=== PATIENT | female | born 1965 | race Caucasian/White ===

== ENCOUNTER 2020-06-11 09:14 | Emergency (ER) | payer BC ==
[~2020-06-11] VITALS: Ht 160 cm; Wt 77.1 kg
[2020-06-11] MEDS ORDERED: LEVOTHYROXINE125 MCG ORAL (09:36)
[2020-06-11 09:45] VITALS: BP 137/84
--- NOTE | 2020-06-11 10:55 | Diagnostic Imaging Report ---
Indications: And injury, pain Technique: Spiral acquisitions obtained through the brain. Angled axial and coronal 5 x 5 mm slices were reconstructed. Total dose length product 1045 mGycm. CTDI vol(s) 53 mGy. Dose reduction achieved using automated exposure control Comparison: None. Findings: No acute intracranial hemorrhage or edema. No mass effect or midline shift. Normal zee-white differentiation. Mastoids are clear. Visualized orbits and sinuses are unremarkable. The calvarium is intact. Impression: Negative The CT scanner at [facility] is accredited by the [employer] and the scans are performed using protocols designed to limit radiation exposure to as low as reasonably achievable to attain images of sufficient resolution adequate for diagnostic evaluation.
[2020-06-11] MEDS ORDERED: TYLENOL EXTRA500 MG ORAL (11:13)
[2020-06-11 11:27] VITALS: BP 137/84
--- NOTE | 2020-06-17 06:42 | Emergency Room Report ---
History of Present Illness General Chief Complaint: Headache Source: Patient Present Illness HPI 54-year-old female presents the ED after head injury. States she fell backwards in her chair and hit the back of her head about 4 days ago. Denies LOC but states she is been having nausea and dizziness since. Pain is dull, 7 out of 10, nonradiating. Denies any other injuries. No other aggravating relieving factors. Denies any other associated symptoms Allergies: Coded Allergies: No Known Allergies (Unverified , 06/11/20) COVID-19 Screening Contact w/high risk pt: No Experienced COVID-19 symptoms?: Yes COVID-19 Testing performed V[employer]: Yes - one month ago COVID-19 Screening: Negative COVID-19 COVID-19 Testing Source: RN SANE Patient History Past Medical History: none Past Surgical History: none Pertinent Family History: none Social History: Denies: smoking, alcohol use, drug use Now: No Immunizations: UTD Reviewed Nursing Documentation: PMH: Agreed; PSxH: Agreed Nursing Documentation-PMH Past Medical History: No History, Except For Review of Systems All Other Systems: negative except mentioned in HPI Physical Exam Sp02 EP Interpretation: reviewed, normal General Appearance: no apparent distress, alert, GCS 15, non-toxic Head: normocephalic, atraumatic Eyes: bilateral eye normal inspection, bilateral eye PERRL ENT: hearing grossly normal, normal pharynx, no angioedema, normal voice Neck: full range of motion, supple/symm/no masses Respiratory: chest non-tender, lungs clear, normal breath sounds, speaking full sentences Cardiovascular #1: regular rate, rhythm, no edema Cardiovascular #2: 2+ carotid (R), 2+ carotid (L), 2+ radial (R), 2+ radial (L), 2+ dorsalis pedis (R), 2+ dorsalis pedis (L) Gastrointestinal: normal bowel sounds, non tender, soft, non-distended, no guarding, no rebound Rectal: deferred Genitourinary: normal inspection, no CVA tenderness Musculoskeletal: back normal, normal range of motion, gait/station normal, non- tender Neurologic: alert, motor strength/tone normal, oriented x3, sensory intact, responsive, speech normal Psychiatric: judgement/insight normal, memory normal, mood/affect normal, no suicidal/homicidal ideation Reflexes: 3+ bicep (R), 3+ bicep (L), 3+ tricep (R), 3+ tricep (L), 3+ knee (R), 3+ knee (L) Lymphatic: no adenopathy Medical Decision Making Diagnostic Impression: Primary Impression: Head injury Qualified Codes: S09.90XA - Unspecified injury of head, initial encounter ER Course Hospital Course 54-year-old F presents ED complaining of headache with dizziness and nausea after falling backwards and hitting head. Differential diagnoses include: skull fx, intracranial injury, concussion Clinical course Patient placed on stretcher. After initial history and physical I ordered CT head CT head shows no acute process. I discussed findings with patient. Reassurance given. No focal deficits. Safe for discharge with close outpatient follow-up. States she has a PMD Diagnosis - head injury Stable and discharged to home with Rx tylenol. Followup with PMD. Return to ED if symptoms recur or worsen CT/MRI/US Diagnostic Results CT/MRI/US Diagnostic Results : Imaging Test Ordered: CT Head Impression Procedure: CT Head no Contrast Indications: And injury, pain Technique: Spiral acquisitions obtained through the brain. Angled axial and coronal 5 x 5 mm slices were reconstructed. Total dose length product 1045 mGycm. CTDI vol(s) 53 mGy. Dose reduction achieved using automated exposure control Comparison: None. Findings: No acute intracranial hemorrhage or edema. No mass effect or midline shift. Normal zee-white differentiation. Mastoids are clear. Visualized orbits and sinuses are unremarkable. The calvarium is intact. Impression: Negative Status: improved Disposition: HOME, SELF-CARE Condition: Stable Scripts Acetaminophen* (TYLENOL EXTRA STRENGTH*) 500 Mg Tablet 500 MG ORAL Q8H PRN for Prn Headache/Temp > 101, #30 TAB 0 Refills Prov: Bebo Morales MD 06/11/20 Departure Forms: Return to Work Return to Work Date: Jun 14, 2020 Work Restrictions: None Patient Instructions: Head Injury, Adult Bebo Morales MD Jun 17, 2020 06:42
== END 2020-06-11 11:29 | disposition home or self-care (01) ==
LOC: EEVIPCON 09:47 → EMR 09:47
DX: S09.90XA Unspecified injury of head, initial encounter (principal); W07.XXXA Fall from chair, initial encounter; Y92.9 Unspecified place or not applicable; R42 Dizziness and giddiness; R11.0 Nausea
CPT/HCPCS: 70450; 99284